=== PATIENT | male | born 1960 | race Caucasian/White ===

== ENCOUNTER → 2021-04-10 | Outpatient (CLI) | payer BC ==
[~2021-04-10] MED LIST: CARDIZEM CD240 MG PO; COZAAR100 MG PO; ELIQUIS2.5 MG PO; FLORINEF 0.1 M0.1 MG PO; INSPRA25 MG PO; PRAVACHOL40 MG PO; SYNTHROID200 MCG PO; VITAMIN D32000 UNI1 PO; ZYLOPRIM 300 M300 MG PO
== END ==
LOC: KOH-I 11:48
DX: M25.561 Pain in right knee (principal)
CPT/HCPCS: 73562